=== PATIENT | female | born 1970 | race Caucasian/White ===

== ENCOUNTER → 2018-03-13 18:10 | Outpatient (REF) | payer OTHER, SELFPAY ==
[2018-03-13 21:39] LABS: Anion Gap 9.3 mmol/L (3-11); BUN 14 mg/dL (7-18); CO2 23.7 mmol/L (21.0-32.0); CREATININE 0.92 mg/dL (0.55-1.02); Calcium 8.7 mg/dL (8.5-10.1); Chloride 105 mmol/L (98-107); Glucose 94 mg/dL (70-100); Sodium 138 mmol/L (136-145)
== END ==
LOC: NCHCN 18:10
PROVIDERS: PCP Family Medicine; Visit Provider Nurse Practitioner Family
DX: I10 Essential (primary) hypertension (principal)
CPT/HCPCS: 80048

== ENCOUNTER 2019-03-11 09:21 | Outpatient (REF) | payer OTHER, SELFPAY ==
[2019-03-11 21:11] LABS: Anion Gap 11.8 mmol/L (3-11); BUN 14 mg/dL (7-18); CO2 24.2 mmol/L (21.0-32.0); CREATININE 0.94 mg/dL (0.55-1.02); Calcium 8.4 mg/dL (8.5-10.1); Chloride 103 mmol/L (98-107); Glucose 90 mg/dL (70-100); Potassium 3.9 mmol/L (3.5-5.1); Sodium 139 mmol/L (136-145)
== END 2019-03-11 09:41 ==
LOC: NCHCN 09:21
PROVIDERS: PCP Family Medicine; Visit Provider Registered Nurse
DX: I10 Essential (primary) hypertension (principal)
CPT/HCPCS: 80048

== ENCOUNTER 2020-01-05 09:19 | Outpatient (REF) | payer OTHER, SELFPAY ==
[2020-01-05 21:31] LABS: ALT 43 U/L (14-59); AST 32 U/L (15-37); Albumin 3.6 g/dL (3.4-5.0); Alkaline Phosphatase 100 U/L (46-116); Anion Gap 8.4 mmol/L (3-11); BUN 15 mg/dL (7-18); Bilirubin, Total 0.4 mg/dL (0.2-1.0); CO2 26.6 mmol/L (21.0-32.0); CREATININE 0.99 mg/dL (0.55-1.02); Calcium 9.5 mg/dL (8.5-10.1); Chloride 103 mmol/L (98-107); Glucose 92 mg/dL (74-106); Potassium 4.5 mmol/L (3.5-5.1); Sodium 138 mmol/L (136-145); Total Protein 7.6 g/dL (6.4-8.2)
== END 2020-01-05 09:39 ==
LOC: NCHCN 09:19
PROVIDERS: Nurse Practitioner Family; PCP Family Medicine; Visit Provider Family Medicine
DX: I10 Essential (primary) hypertension (principal)
CPT/HCPCS: 80053

== ENCOUNTER 2020-12-30 17:32 | Outpatient (REF) | payer OTHER, SELFPAY ==
[2020-12-30 20:41] LABS: Hemoglobin A1C 5.9 % (<5.7)
[2020-12-30 20:47] LABS: Anion Gap 5.9 mmol/L (3-11); BUN 15 mg/dL (7-18); CO2 30.1 mmol/L (21.0-32.0); CREATININE 0.9 mg/dL (0.55-1.02); Calcium 9.4 mg/dL (8.5-10.1); Calculated LDL 125 mg/dL (<100); Chloride 106 mmol/L (98-107); Cholesterol 201 mg/dL (<200); Glucose 104 mg/dL (74-106); HDL Cholesterol 40 mg/dL (40-60); Sodium 142 mmol/L (136-145); TSH (W/Ref FT4) 0.87 uIU/mL (0.36-3.74); Triglyceride 181 mg/dL (<150)
== END 2020-12-30 17:33 | disposition home or self-care (01) ==
LOC: NCHCN 17:32
PROVIDERS: PCP Family Medicine; Visit Provider Nurse Practitioner Family
DX: Z00.00 Encounter for general adult medical examination without abnormal findings (principal); N94.6 Dysmenorrhea, unspecified; E78.5 Hyperlipidemia, unspecified; R73.03 Prediabetes
CPT/HCPCS: 80048; 80061; 83036; 84443

== ENCOUNTER 2022-07-25 08:19 | Outpatient (REF) | payer BC, SELFPAY ==
[2022-07-25 16:18] LABS: ALT 19 U/L (14-59); AST 22 U/L (15-37); Albumin 3.6 g/dL (3.4-5.0); Alkaline Phosphatase 72 U/L (46-116); Anion Gap 11.4 mmol/L (3-11); BUN 18 mg/dL (7-18); Bilirubin, Total 0.4 mg/dL (0.2-1.0); CO2 22.6 mmol/L (21.0-32.0); Calcium 8.8 mg/dL (8.5-10.1); Calculated LDL 125 mg/dL (<100); Chloride 106 mmol/L (98-107); Cholesterol 178 mg/dL (<200); Estimated GFR 69.06 (mL/min/1.73m2); Glucose 96 mg/dL (74-106); HDL Cholesterol 38 mg/dL (40-60); Potassium 4.2 mmol/L (3.5-5.1); Sodium 140 mmol/L (136-145); Total Protein 7.8 g/dL (6.4-8.2); Triglyceride 79 mg/dL (<150)
[2022-07-25 16:24] LABS: Hemoglobin A1C 5.6 % (<5.7)
== END 2022-07-25 08:20 | disposition home or self-care (01) ==
LOC: NCHCN 08:19
PROVIDERS: PCP Family Medicine; Visit Provider Nurse Practitioner Family
DX: E78.5 Hyperlipidemia, unspecified (principal); R73.03 Prediabetes; Z00.00 Encounter for general adult medical examination without abnormal findings
CPT/HCPCS: 80053; 80061; 83036

== ENCOUNTER 2022-07-31 15:48 | Outpatient (REF) | payer BC, SELFPAY ==
--- NOTE | 2022-07-31 08:45 | PAPFT_PTH ---
PATIENT: Randi Gil LOC: [facility]#:[id number] AGE/SX: 51/F ROOM: RE07/31/[address]: Key Muro : 1970 BED: DIS: 07/31/2022 SPEC #: [id number] RECD: 07/31/22 18:01 STATUS: LEMUEL REBrandee #: [id number] PRATEEK: 07/31/22 08:[address]: Key Muro [facility]PT[facility] Cytology RECD BY: Darshana Hannon ENTERED: 07/31/22 18:01 SP TYPE: PAPFT OTHR DR: Onelia Malhotra Tissues: 1 - CX/ENDOCX FOR PAP SMEARS Procedures: PAP THIN PREP/[facility] Screening HPV DNA PROBE Comments: [id number]
== END 2022-07-31 15:49 | disposition home or self-care (01) ==
LOC: NCHCN 15:48
PROVIDERS: PCP Family Medicine; Visit Provider Nurse Practitioner Family
DX: Z12.4 Encounter for screening for malignant neoplasm of cervix (principal); Z11.51 Encounter for screening for human papillomavirus (HPV)
CPT/HCPCS: 88142; 87624

== ENCOUNTER 2023-10-05 08:40 | Outpatient (REF) | payer BC, SELFPAY ==
[2023-10-05 14:34] LABS: ALT 18 U/L (14-59); AST 21 U/L (15-37); Albumin 3.3 g/dL (3.4-5.0); Alkaline Phosphatase 76 U/L (46-116); Anion Gap 10.8 mmol/L (3-11); BUN 16 mg/dL (7-18); Bilirubin, Total 0.3 mg/dL (0.2-1.0); CO2 23.2 mmol/L (21.0-32.0); Calcium 8.8 mg/dL (8.5-10.1); Calculated LDL 137 mg/dL (<100); Chloride 108 mmol/L (98-107); Cholesterol 190 mg/dL (<200); Estimated GFR 68.63 (mL/min/1.73m2); Glucose 94 mg/dL (74-106); HDL Cholesterol 36 mg/dL (40-60); Potassium 4.5 mmol/L (3.5-5.1); Sodium 142 mmol/L (136-145); Total Protein 7.4 g/dL (6.4-8.2); Triglyceride 85 mg/dL (<150)
== END 2023-10-05 08:41 | disposition home or self-care (01) ==
LOC: NCHCN 08:40
PROVIDERS: PCP Family Medicine; Referring Provider Nurse Practitioner Family; Visit Provider Nurse Practitioner Family
DX: Z00.00 Encounter for general adult medical examination without abnormal findings (principal); Z13.220 Encounter for screening for lipoid disorders; Z13.228 Encounter for screening for other metabolic disorders
CPT/HCPCS: 80053; 80061

== ENCOUNTER 2023-10-26 18:03 | Outpatient (REF) | payer BC, SELFPAY ==
[2023-10-26 21:16] LABS: BUN 17 mg/dL (7-18); Calcium 8.9 mg/dL (8.5-10.1); Chloride 100 mmol/L (98-107); Estimated GFR 68.63 (mL/min/1.73m2); Glucose 105 mg/dL (74-106); Potassium 3.4 mmol/L (3.5-5.1); Sodium 135 mmol/L (136-145)
== END 2023-10-26 18:04 | disposition home or self-care (01) ==
LOC: NCHCN 18:03
PROVIDERS: PCP Family Medicine; Referring Provider Nurse Practitioner Family; Visit Provider Nurse Practitioner Family
DX: I10 Essential (primary) hypertension (principal)
CPT/HCPCS: 80048

== ENCOUNTER 2023-11-20 16:04 | Outpatient (REF) | payer BC, SELFPAY ==
[2023-11-20 22:15] LABS: BUN 14 mg/dL (7-18); CREATININE 0.9 mg/dL (0.55-1.02); Calcium 8.6 mg/dL (8.5-10.1); Chloride 107 mmol/L (98-107); Glucose 100 mg/dL (74-106); Potassium 3.7 mmol/L (3.5-5.1); Sodium 141 mmol/L (136-145)
== END 2023-11-20 16:05 | disposition home or self-care (01) ==
LOC: NCHCN 16:04
PROVIDERS: PCP Family Medicine; Visit Provider Nurse Practitioner Family
DX: I10 Essential (primary) hypertension (principal)
CPT/HCPCS: 80048

== ENCOUNTER 2024-04-24 15:28 | Outpatient (REF) | payer BC, SELFPAY ==
[2024-04-24 14:47] LABS: Anion Gap 8.2 mmol/L (3-11); BUN 21 mg/dL (7-18); CO2 23.8 mmol/L (21.0-32.0); Calcium 9.7 mg/dL (8.5-10.1); Chloride 103 mmol/L (98-107); Estimated GFR 68.21 (mL/min/1.73m2); Glucose 98 mg/dL (74-106); Potassium 4.2 mmol/L (3.5-5.1); Sodium 135 mmol/L (136-145)
== END 2024-04-24 15:29 | disposition home or self-care (01) ==
LOC: NCHCN 15:28
PROVIDERS: PCP Family Medicine; Visit Provider Nurse Practitioner Family
DX: I10 Essential (primary) hypertension (principal)
CPT/HCPCS: 80048